=== PATIENT | female | born 1980 | race Two or more races ===

== ENCOUNTER → 2024-07-18 | Outpatient (CLI) | payer MEDICAID, SELFPAY ==
--- NOTE | 2024-07-18 13:15 | XR_ITS ---
Examination: Screening digital mammography, bilateral Computer aided detection 3-D breast Tomosynthesis, bilateral Date and time of exam: July 18, 2024 1314 hours Compared to November 09, 2022 Indication: Screening Technique: Nonmagnified MLO, CC views of the breasts to been obtained, reconstructed from 3-D Tomosynthesis images. R2 computer aided detection program utilized for evaluation of suspicious masses and/or abnormal calcifications. 3-D Tomosynthesis images obtained. Findings: The breasts are heterogeneously dense, which may obscure small masses Intact implants. No interval suspicious masses Impression: BI-RADS category II: Benign Findings. Recommend 1 year follow-up mammogram.
== END | disposition home or self-care (01) ==
LOC: CDIM 13:03
PROVIDERS: Referring Provider Nurse Practitioner Women's Health; Visit Provider Nurse Practitioner Women's Health
DX: Z12.31 Encounter for screening mammogram for malignant neoplasm of breast (principal); R92.323 Mammographic fibroglandular density, bilateral breasts
CPT/HCPCS: 77063; 77067

== ENCOUNTER → 2025-03-29 | Outpatient (CLI) | payer MEDICAID, SELFPAY ==
--- NOTE | 2025-03-29 16:30 | XR_ITS ---
Examination: Shoulder,right, 3 views Technique: Shoulder AP internal rotation, AP external rotation, Y view shoulder, 3 views Exam date and time :March 29, 2025, 1638 hrs. Indications: Right shoulder pain beginning 3 months ago. Findings: No shoulder fracture or dislocation. Mild narrowing glenohumeral joint Mild right shoulder calcific tendinitis Impression: Mild narrowing glenohumeral joint Mild right shoulder calcific tendinitis
--- NOTE | 2025-03-29 16:30 | XR_ITS ---
Examination: Thoracic spine 3 views Technique: AP lateral coned lateral upper dorsal spine 3 views Date and time: March 29, 2025, 1638 hrs. Indications: Upper back pain beginning 3 months ago. Findings: Adequate alignment thoracic vertebral bodies on the lateral view Thoracic dextroscoliosis 8 degrees which may be positional Mild prominence left ventricle Mild diffuse thoracic degenerative disc disease No thoracic fracture Impression: Mild diffuse thoracic degenerative disc disease
--- NOTE | 2025-03-29 16:30 | XR_ITS ---
Examination: Lumbar spine 3 views Technique: AP lateral coned lateral lower lumbar spine 3 views Date and time: March 29, 2025 1638 hrs. Indications: Low back pain 3 months Findings: Mild osteopenia. Lumbar levoscoliosis 10 degrees No lumbar fracture Moderate disc narrowing L5-S1. No spondylolisthesis. Impression: Moderate degenerative disc disease L5-S1
== END | disposition home or self-care (01) ==
PROVIDERS: Referring Provider Internal Medicine; Visit Provider Internal Medicine
DX: M75.31 Calcific tendinitis of right shoulder (principal); M25.811 Other specified joint disorders, right shoulder; M51.370 Other intervertebral disc degeneration, lumbosacral region with discogenic back pain only; M51.34 Other intervertebral disc degeneration, thoracic region
CPT/HCPCS: 72070; 72100; 73030